=== PATIENT | female | born 1980 | race Caucasian/White ===

== ENCOUNTER 2022-02-05 11:32 | Outpatient (CLI) | payer BC | END 2022-02-05 11:33 | disposition home or self-care (01) | LOC: CSHMAMMO 11:32 | PROVIDERS: ATTEND Obstetrics & Gynecology | DX: Z12.31 Encounter for screening mammogram for malignant neoplasm of breast (principal) | CPT/HCPCS: 77063; 77067 ==

== ENCOUNTER 2024-03-24 18:56 | Inpatient (IN) | payer BC ==
[2024-03-24 19:27] VITALS: BMI 33.6
[2024-03-24] MEDS ORDERED: HYDROcodone/Acetaminophen 5/325 mg Tablet PO PRN ×2 (20:23)
[2024-03-24] MEDS ORDERED: Ibuprofen 800 MG TAB PO PRN (20:23)
[2024-03-24] MEDS ORDERED: fentaNYL 50 mcg/mL 1 mL Vial SLOW IVP PRN (20:23)
[2024-03-24] MEDS ORDERED: Ondansetron PF 4 MG/2 ML Vial IVP PRN (20:23)
[2024-03-24] MEDS ORDERED: hydrALAZINE 20 MG/ML VIAL SLOW IVP PRN (20:23)
[2024-03-24] MEDS ORDERED: Promethazine HCl 25 MG/ML VIAL IM PRN (20:23)
[2024-03-24] MEDS ORDERED: Lidocaine 1% (PF) 30 ML VIAL SC PRN (20:23)
[2024-03-24] MEDS ORDERED: Lactated Ringer's 1,000 ML IV PRN (20:23)
[2024-03-24] MEDS ORDERED: Oxytocin 30 units/NS 500 ML 500 ML IV SCH ×2 (20:45→23:00)
[2024-03-24 21:04] LABS: Hematocrit 35.4 % (34.9-44.5); Hemoglobin 12.3 g/dL (12.0-15.5); Mean Corpuscular HGB CONC 34.7 g/dL (32.0-36.0); Mean Corpuscular Hemoglobin 29.8 pg (27.0-33.0); Mean Corpuscular Volume 85.7 fL (81.6-98.3); Mean Platelet Volume 9.4 fL (7.4-10.4); Platelet Count 239 10x3/uL (150-450); RBC Distribution Width 14.2 % (11.5-14.5); Red Blood Cell (RBC) Count 4.13 10x6/uL (3.90-5.03); White Blood Cell (WBC) Count 10.5 10x3/uL (3.5-10.5)
[2024-03-24 22:50] LABS: Syphilis Antibody Nonreactive (Nonreactive); Syphilis Antibody Index 0.09 S/CO (<1.00 Non-Reactive)
[2024-03-24 22:52] LABS: HBsAg Index 0.16 S/CO (0-0.99); Hep B Surf Ag - L&D Non-Reactive S/CO (NonReactive)
[2024-03-25] MEDS ORDERED: Bisacodyl 10 MG SUPP PR PRN (11:53)
[2024-03-25] MEDS ORDERED: HYDROcodone/Acetaminophen 5/325 mg Tablet PO PRN (11:53)
[2024-03-25] MEDS ORDERED: Milk Of Magnesia 30 ML UDCUP PO PRN (11:53)
[2024-03-25] MEDS ORDERED: Oxytocin 30 units/NS 500 ML 500 ML IV SCH (11:53)
[2024-03-25] MEDS ORDERED: Ondansetron PF 4 MG/2 ML Vial IVP PRN (11:53)
[2024-03-25] MEDS ORDERED: Lanolin Ointment 7 GM TUBE TOP PRN (11:53)
[2024-03-25] MEDS ORDERED: hydrALAZINE 20 MG/ML VIAL SLOW IVP PRN (11:53)
[2024-03-25] MEDS: Ferrous Sulfate 325 MG TAB PO SCH (15:16)
[2024-03-25] MEDS: Prenatal Vitamin 1 TAB PO SCH (15:16)
[2024-03-25] MEDS: Docusate 100 MG CAP PO SCH ×2 (15:16→20:17)
[2024-03-25] MEDS: Ibuprofen 800 MG TAB PO SCH (15:17)
[2024-03-25] MEDS ORDERED: Boostrix 0.5 ML (Tdap) VIAL (>/=7 yrs of age) IM ONE (17:00)
[2024-03-25] MEDS ORDERED: Acetaminophen 325 MG TAB PO PRN (18:27)
[2024-03-25] MEDS: Benzocaine-Menthol 82.5 ML CAN TOP PRN (20:16)
[2024-03-25] MEDS: HYDROcodone/Acetaminophen 5/325 mg Tablet PO PRN (20:21)
[2024-03-25 23:50] VITALS: BP 123/65; TEMP 98.4
[2024-03-26] MEDS: Prenatal Vitamin 1 TAB PO SCH (09:49)
[2024-03-26] MEDS: Ferrous Sulfate 325 MG TAB PO SCH (09:49)
== END 2024-03-26 13:20 | disposition home or self-care (01) | DRG 807 ==
LOC: CSHLD/OP 18:56 → CSHLD 20:23 → CSHPP 03-25 10:05
PROVIDERS: ADMIT Obstetrics & Gynecology; ATTEND Obstetrics & Gynecology
PROC: 10E0XZZ Delivery of Products of Conception, External Approach (ICD-10-PCS; principal; 2024-03-25)
DX: O42.02 Full-term premature rupture of membranes, onset of labor within 24 hours of rupture (principal); Z37.0 Single live birth; O09.523 Supervision of elderly multigravida, third trimester; Z3A.38 38 weeks gestation of pregnancy
CPT/HCPCS: 85027; 86780; 86850; 86900; 86901; 87340; 99285; J2590